=== PATIENT | female | born 1975 | race Native Hawaiian/Other Pacific Islander ===

== ENCOUNTER 2016-10-18 12:16 | Outpatient (CLI) | payer OTHER ==
[~2016-10-18 12:16] MED LIST: CYCL10TA35 PO; FURO20TA67 PO; LOVASTATIN10 MG OR; MELOXICAM15 MG PO; METFORMIN ER1000 MG PO; PROVENTIL IN; ROBAXIN500 MG PO
[2016-10-18 13:22] LABS: PLATELET COUNT 280 K/uL (152-353)
[2016-10-18 13:42] LABS: POTASSIUM 3.7 mmol/L (3.6-5.2); SODIUM 133 mmol/L (136-145)
[2016-10-18] MEDS ORDERED: ACET-689 PO (16:23)
[2016-10-18] MEDS ORDERED: OMEPRAZOLE10 MG OR (16:23)
== END 2016-10-18 19:52 | disposition home or self-care (01) ==
LOC: LABW 12:16
PROVIDERS: Nurse Practitioner Adult Health
DX: E78.2 Mixed hyperlipidemia (principal); Z01.810 Encounter for preprocedural cardiovascular examination; I25.5 Ischemic cardiomyopathy
CPT/HCPCS: 36415; 80053; 85027

== ENCOUNTER 2016-10-18 16:01 | Emergency (ER) | payer OTHER ==
[~2016-10-18] VITALS: Ht 154.9 cm; Wt 89.8 kg
[2016-10-18] MEDS ORDERED: ACET-689 PO (16:23)
[2016-10-18] MEDS ORDERED: OMEPRAZOLE10 MG OR (16:23)
[2016-10-18 16:46] LABS: PLATELET COUNT 260 K/uL (152-353)
[2016-10-18 17:02] LABS: SODIUM 130 mmol/L (136-145)
[2016-10-18 17:53] VITALS: BP 112/71
== END 2016-10-18 17:54 ==
LOC: ED 16:01
PROVIDERS: Specialist
DX: I24.9 Acute ischemic heart disease, unspecified (principal); I24.0 Acute coronary thrombosis not resulting in myocardial infarction; E11.65 Type 2 diabetes mellitus with hyperglycemia; R00.0 Tachycardia, unspecified
CPT/HCPCS: 36415; 80053; 82550; 83735; 84484; 85027; 85379; 85610; 93005; 96361; 96365; 96375; 99285; J1644; J1815; J2270; J3490

== ENCOUNTER 2016-10-18 17:55 | Outpatient (CLI) | payer OTHER ==
[~2016-10-18 17:55] MED LIST changes: +ACET-689 PO; +OMEPRAZOLE10 MG OR
== END 2016-10-18 18:25 | disposition short-term general hospital (02) ==
LOC: AMB 17:55
DX: I24.9 Acute ischemic heart disease, unspecified (principal); I24.0 Acute coronary thrombosis not resulting in myocardial infarction; E11.65 Type 2 diabetes mellitus with hyperglycemia; R00.0 Tachycardia, unspecified
CPT/HCPCS: A0425; A0427

== ENCOUNTER 2016-10-29 08:11 | Emergency (ER) | payer OTHER ==
[~2016-10-29] VITALS: Ht 154.9 cm; Wt 90.7 kg
[2016-10-29 08:50] LABS: PLATELET COUNT 360 K/uL (152-353)
[2016-10-29 09:04] LABS: POTASSIUM 3.7 mmol/L (3.6-5.2); SODIUM 136 mmol/L (136-145)
[2016-10-29 09:11] LABS: PARTIAL THROMBOPLASTIN TIME 29.6 SECONDS (24.5-33.6)
[2016-10-29 09:41] VITALS: BP 105/75; TEMP 98.1
== END 2016-10-29 09:41 | disposition home or self-care (01) ==
LOC: ED 08:11
DX: S20.212A Contusion of left front wall of thorax, initial encounter (principal); S20.211A Contusion of right front wall of thorax, initial encounter; R00.0 Tachycardia, unspecified; Z98.890 Other specified postprocedural states; W18.39XA Other fall on same level, initial encounter; Y92.230 Patient room in hospital as the place of occurrence of the external cause
CPT/HCPCS: 36415; 80053; 82550; 84484; 85027; 85610; 85730; 93005; 96372; 99284; J1885

== ENCOUNTER 2017-02-13 08:00 | Outpatient (CLI) | payer OTHER | END 2017-02-13 19:39 | disposition home or self-care (01) | LOC: LABW 08:00 | PROVIDERS: Specialist | DX: E78.4 Other hyperlipidemia (principal); Z79.899 Other long term (current) drug therapy | CPT/HCPCS: 36415; 80061; 80076 ==

== ENCOUNTER 2017-03-28 10:38 | Outpatient (CLI) | payer OTHER | END 2017-03-28 11:40 | disposition home or self-care (01) | LOC: LABW 10:38 | DX: Z79.01 Long term (current) use of anticoagulants (principal); Z79.899 Other long term (current) drug therapy; I74.8 Embolism and thrombosis of other arteries; Z51.81 Encounter for therapeutic drug level monitoring | CPT/HCPCS: 36415; 85610 ==

== ENCOUNTER 2017-04-04 11:32 | Outpatient (CLI) | payer OTHER | END 2017-04-04 19:09 | disposition home or self-care (01) | LOC: LABW 11:32 | DX: Z79.01 Long term (current) use of anticoagulants (principal); Z79.899 Other long term (current) drug therapy; Z51.81 Encounter for therapeutic drug level monitoring | CPT/HCPCS: 36415; 85610 ==

== ENCOUNTER 2017-04-11 14:51 | Outpatient (CLI) | payer OTHER | END 2017-04-11 16:00 | disposition home or self-care (01) | LOC: LABW 14:51 | DX: Z79.01 Long term (current) use of anticoagulants (principal); Z79.899 Other long term (current) drug therapy; Z51.81 Encounter for therapeutic drug level monitoring | CPT/HCPCS: 36415; 85610 ==

== ENCOUNTER 2017-05-02 08:19 | Outpatient (CLI) | payer OTHER | END 2017-05-02 19:35 | disposition home or self-care (01) | LOC: LABW 08:19 | DX: Z79.01 Long term (current) use of anticoagulants (principal); Z79.899 Other long term (current) drug therapy; Z51.81 Encounter for therapeutic drug level monitoring | CPT/HCPCS: 36415; 85610 ==

== ENCOUNTER 2017-05-16 07:49 | Outpatient (CLI) | payer OTHER | END 2017-05-16 19:04 | disposition home or self-care (01) | LOC: LABW 07:49 | DX: Z79.01 Long term (current) use of anticoagulants (principal); Z79.899 Other long term (current) drug therapy; I48.0 Paroxysmal atrial fibrillation; Z51.81 Encounter for therapeutic drug level monitoring | CPT/HCPCS: 36415; 85610 ==

== ENCOUNTER 2017-05-23 09:02 | Outpatient (CLI) | payer OTHER | END 2017-05-23 19:30 | disposition home or self-care (01) | LOC: LABW 09:02 | DX: Z79.01 Long term (current) use of anticoagulants (principal); Z79.899 Other long term (current) drug therapy; Z51.81 Encounter for therapeutic drug level monitoring | CPT/HCPCS: 36415; 85610 ==

== ENCOUNTER 2017-05-30 07:19 | Outpatient (CLI) | payer OTHER | END 2017-05-30 08:20 | disposition home or self-care (01) | LOC: LABW 07:19 | DX: Z79.01 Long term (current) use of anticoagulants (principal); Z79.899 Other long term (current) drug therapy; Z51.81 Encounter for therapeutic drug level monitoring | CPT/HCPCS: 36415; 85610 ==

== ENCOUNTER 2017-06-20 07:41 | Outpatient (CLI) | payer OTHER | END 2017-06-20 18:58 | LOC: LABW 07:41 | DX: Z79.01 Long term (current) use of anticoagulants (principal); Z79.899 Other long term (current) drug therapy; Z51.81 Encounter for therapeutic drug level monitoring | CPT/HCPCS: 36415; 85610 ==

== ENCOUNTER 2017-07-10 08:58 | Outpatient (CLI) | payer OTHER | END 2017-07-10 19:01 | disposition home or self-care (01) | LOC: US 08:58 | DX: R10.84 Generalized abdominal pain (principal) ==

== ENCOUNTER 2017-07-11 07:46 | Outpatient (CLI) | payer OTHER | END 2017-07-11 19:02 | disposition home or self-care (01) | LOC: LABW 07:46 | DX: Z79.01 Long term (current) use of anticoagulants (principal); Z79.899 Other long term (current) drug therapy; Z51.81 Encounter for therapeutic drug level monitoring | CPT/HCPCS: 36415; 85610 ==

== ENCOUNTER 2017-08-22 09:11 | Outpatient (CLI) | payer OTHER | END 2017-08-22 10:15 | disposition home or self-care (01) | LOC: LABW 09:11 | DX: Z79.01 Long term (current) use of anticoagulants (principal); Z79.899 Other long term (current) drug therapy; Z51.81 Encounter for therapeutic drug level monitoring | CPT/HCPCS: 36415; 85610 ==

== ENCOUNTER 2017-08-24 09:19 | Outpatient (CLI) | payer OTHER | END 2017-08-24 19:11 | disposition home or self-care (01) | LOC: LABW 09:19 | DX: Z79.01 Long term (current) use of anticoagulants (principal); Z79.899 Other long term (current) drug therapy; Z51.81 Encounter for therapeutic drug level monitoring | CPT/HCPCS: 36415; 85610 ==

== ENCOUNTER 2017-08-28 09:16 | Outpatient (CLI) | payer OTHER | END 2017-08-28 10:30 | disposition home or self-care (01) | LOC: CT 09:16 | DX: R91.1 Solitary pulmonary nodule (principal) ==

== ENCOUNTER 2017-09-04 09:26 | Emergency (ER) | payer OTHER ==
[~2017-09-04] VITALS: Ht 154.9 cm; Wt 110.2 kg
[2017-09-04 09:49] VITALS: BP 148/88; TEMP 98.7
== END 2017-09-04 10:53 | disposition home or self-care (01) ==
LOC: ED 09:26
DX: J02.9 Acute pharyngitis, unspecified (principal)
CPT/HCPCS: 99281

== ENCOUNTER 2017-10-02 09:28 | Outpatient (CLI) | payer OTHER | END 2017-10-02 16:00 | disposition home or self-care (01) | LOC: LABW 09:28 | DX: Z79.01 Long term (current) use of anticoagulants (principal); Z79.899 Other long term (current) drug therapy; Z51.81 Encounter for therapeutic drug level monitoring | CPT/HCPCS: 36415; 85610 ==

== ENCOUNTER 2017-10-10 07:37 | Outpatient (CLI) | payer OTHER | END 2017-10-10 19:29 | disposition home or self-care (01) | LOC: LABW 07:37 | DX: Z79.01 Long term (current) use of anticoagulants (principal); Z79.899 Other long term (current) drug therapy; Z51.81 Encounter for therapeutic drug level monitoring | CPT/HCPCS: 36415; 85610 ==

== ENCOUNTER 2017-10-27 07:45 | Outpatient (CLI) | payer OTHER | END 2017-10-27 23:33 | disposition home or self-care (01) | LOC: LABW 07:45 | DX: Z79.01 Long term (current) use of anticoagulants (principal); Z79.899 Other long term (current) drug therapy; Z51.81 Encounter for therapeutic drug level monitoring | CPT/HCPCS: 36415; 85610 ==

== ENCOUNTER 2017-10-31 09:19 | Outpatient (CLI) | payer OTHER | END 2017-10-31 10:20 | disposition home or self-care (01) | LOC: LABW 09:19 | DX: Z79.01 Long term (current) use of anticoagulants (principal); Z79.899 Other long term (current) drug therapy; Z51.81 Encounter for therapeutic drug level monitoring | CPT/HCPCS: 36415; 85610 ==